=== PATIENT | male | born 1995 | race African-American/Black ===

== ENCOUNTER 2018-01-04 08:36 | Emergency (ER) | payer MEDICAID, OTHER ==
[~2018-01-04] VITALS: Ht 172.7 cm; Wt 63.5 kg
[2018-01-04 08:48] VITALS: BP 139/72
[2018-01-04] MEDS ORDERED: BACITRACIN TOP OINT 1 UD PKG TOP ONE (09:30)
[2018-01-04] MEDS ORDERED: LIDOCAINE 1% (LOCAL ANESTH.) PF 5ml SDV ID ONE (09:30)
[2018-01-04] MEDS ORDERED: LET TOPICAL SOLN 5 ML TOP ONE (09:30)
[2018-01-04] MEDS ORDERED: TETANUS-DIPTH-ACEL PERTUSSIS 0.5ML SYRG IM ONE (09:30)
== END 2018-01-04 10:58 | disposition home or self-care (01) ==
LOC: ER 08:36
DX: S61.012A Laceration without foreign body of left thumb without damage to nail, initial encounter (principal); W26.0XXA Contact with knife, initial encounter; Y93.89 Activity, other specified; Y99.8 Other external cause status; Y92.89 Other specified places as the place of occurrence of the external cause
CPT/HCPCS: 12001; 90471; 90715; 99283; J3490

== ENCOUNTER 2019-05-03 07:06 | Emergency (ER) | payer OTHER ==
[~2019-05-03] VITALS: Ht 175.3 cm; Wt 63.5 kg
[2019-05-03 07:49] VITALS: BP 127/80
[2019-05-03] MEDS ORDERED: IBUPROFEN 600 MG TAB PO ONE (08:45)
== END 2019-05-03 08:59 | disposition home or self-care (01) ==
LOC: ER 07:06
DX: S29.011A Strain of muscle and tendon of front wall of thorax, initial encounter (principal); W22.8XXA Striking against or struck by other objects, initial encounter; Y93.89 Activity, other specified; Y92.89 Other specified places as the place of occurrence of the external cause; Y99.0 Civilian activity done for income or pay
CPT/HCPCS: 71046